=== PATIENT | male | born 1965 | race Caucasian/White ===

== ENCOUNTER 2016-06-30 15:10 | Emergency (ER) | payer MEDICARE, MEDICAID ==
[~2016-06-30] VITALS: Ht 175.3 cm; Wt 74.8 kg
[~2016-06-30 15:10] MED LIST: ALBU8.5H5 INH; ASPI325T4 PO; ATAZ300C PO; ATOR10TA PO; DOLU50TA PO; EMTR1TAB12 PO; FLUT1DIS INH; IBUP200T48 PO; RITO100C PO; TIOT18CA INH
[2016-06-30 15:23] VITALS: BP 160/91
[2016-06-30] MEDS ORDERED: HYDROcodone/APAP 5/325 TABLET ONE (15:48)
[2016-06-30] MEDS ORDERED: HYDROcodone/APAP 5/325 TABLET PO ONE (16:00)
== END 2016-06-30 16:38 | disposition home or self-care (01) ==
LOC: ED 16:35
DX: M79.672 Pain in left foot (principal); M85.80 Other specified disorders of bone density and structure, unspecified site; J44.9 Chronic obstructive pulmonary disease, unspecified; Z87.891 Personal history of nicotine dependence
CPT/HCPCS: 99284

== ENCOUNTER 2016-08-11 14:53 | Emergency (ER) | payer MEDICARE, MEDICAID ==
[~2016-08-11] VITALS: Ht 170.2 cm; Wt 83.6 kg
[2016-08-11] MEDS ORDERED: MORPHINE SULFATE 4 MG/ML, 1ML ONE ×2 (16:19→17:48)
[2016-08-11] MEDS ORDERED: ONDANSETRON 2MG/ML, 2ML ONE (16:19)
[2016-08-11] MEDS ORDERED: SODIUM CHLORIDE 0.9% 1,000ML IVBOLUS ONE (16:30)
[2016-08-11] MEDS ORDERED: ONDANSETRON 2MG/ML, 2ML IVPush ONE (16:30)
[2016-08-11] MEDS: MORPHINE SULFATE 4 MG/ML, 1ML IVPush PRN ×2 (16:31→17:51)
[2016-08-11 16:45] LABS: ASPARTATE AMINO TRANSFERASE 48 U/L (15-37); BLOOD UREA NITROGEN 7 mg/dL (7-18)
[2016-08-11 18:43] VITALS: BP 155/88
== END 2016-08-11 18:46 | disposition home or self-care (01) ==
LOC: ED 18:40
DX: M48.56XA Collapsed vertebra, not elsewhere classified, lumbar region, initial encounter for fracture (principal); J44.9 Chronic obstructive pulmonary disease, unspecified
CPT/HCPCS: 36415; 71010; 72131; 74176; 80053; 81003; 85025; 96361; 96374; 96375; 96376; 99285; J2405; J7030

== ENCOUNTER 2016-08-13 08:28 | Emergency (ER) | payer MEDICARE, MEDICAID ==
[~2016-08-13] VITALS: Ht 175.3 cm; Wt 80.0 kg
[2016-08-13] MEDS ORDERED: HYDROmorphone 1 MG/ML, 1ML ONE ×4 (08:44→14:51)
[2016-08-13] MEDS ORDERED: ONDANSETRON 2MG/ML, 2ML ONE ×2 (08:44→13:40)
[2016-08-13] MEDS: HYDROmorphone 1 MG/ML, 1ML IVPush PRN ×2 (08:56→10:43)
[2016-08-13] MEDS ORDERED: SODIUM CHLORIDE FLUSH 10ML SYR IVF ONE (09:00)
[2016-08-13] MEDS ORDERED: DIAZEPAM 5 MG/ML, 2ML IVPush ONE (09:00)
[2016-08-13] MEDS ORDERED: ONDANSETRON 2MG/ML, 2ML IVPush ONE ×2 (09:00→14:00)
[2016-08-13 11:11] LABS: BLOOD UREA NITROGEN 6 mg/dL (7-18)
[2016-08-13] MEDS ORDERED: SODIUM CHLORIDE 0.9% 1,000ML IVBOLUS ONE (11:30)
[2016-08-13 11:42] LABS: DIFF TOTAL CELLS COUNTED 100 CELL DIFF
[2016-08-13 11:43] LABS: VERIFY COUNTS? YES
[2016-08-13] MEDS ORDERED: GADOBUTROL 10 MMOL/10 ML PFS ONE (13:08)
[2016-08-13] MEDS ORDERED: HYDROmorphone 1 MG/ML, 1ML IVPush PRN (14:00)
[2016-08-13 14:30] VITALS: BP 158/89
== END 2016-08-13 15:06 | disposition home or self-care (01) ==
LOC: ED 08:57 → UNDOADMIN 11:36 → EDIP 11:36 → ED 15:06
DX: M48.56XA Collapsed vertebra, not elsewhere classified, lumbar region, initial encounter for fracture (principal); M51.26 Other intervertebral disc displacement, lumbar region; M85.80 Other specified disorders of bone density and structure, unspecified site; J44.9 Chronic obstructive pulmonary disease, unspecified
CPT/HCPCS: 36415; 72158; 80048; 82040; 85025; 85651; 86140; 96361; 96374; 96375; 96376; 99285; A9585; J1170; J2405; J3360; J7030

== ENCOUNTER 2016-08-19 06:11 | Inpatient (IN) | payer MEDICARE, MEDICAID ==
[~2016-08-19] VITALS: Ht 177.8 cm; Wt 85.3 kg
[2016-08-19] MEDS ORDERED: DIAZEPAM 5 MG/ML, 2ML IVPush ONE (06:30)
[2016-08-19] MEDS ORDERED: ONDANSETRON 2MG/ML, 2ML IVPush ONE (06:30)
[2016-08-19] MEDS ORDERED: KETOROLAC 30 MG/1 ML IVPush ONE (06:30)
[2016-08-19] MEDS ORDERED: SODIUM CHLORIDE FLUSH 10ML SYR IVF ONE (06:30)
[2016-08-19] MEDS ORDERED: KETOROLAC 30 MG/1 ML ONE (06:35)
[2016-08-19] MEDS ORDERED: ONDANSETRON 2MG/ML, 2ML ONE (06:36)
[2016-08-19 07:01] LABS: BLOOD UREA NITROGEN 8 mg/dL (7-18)
[2016-08-19 07:04] LABS: ASPARTATE AMINO TRANSFERASE 71 U/L (15-37)
[2016-08-19] MEDS ORDERED: SODIUM CHLORIDE FLUSH 10ML SYR IVF PRN (07:30)
[2016-08-19] MEDS ORDERED: DOCUSATE 100 MG CAPSULE PO PRN (08:30)
[2016-08-19] MEDS ORDERED: GUAIFENESIN/DM 200-20MG, 10ML UDC PO PRN (08:30)
[2016-08-19] MEDS ORDERED: BISACODYL 10 MG SUPP PR PRN (08:30)
[2016-08-19] MEDS ORDERED: ONDANSETRON 2MG/ML, 2ML IVPush PRN (08:30)
[2016-08-19] MEDS ORDERED: morphine SULFATE 10 MG/ML, 1ML IVPush PRN (08:30)
[2016-08-19] MEDS ORDERED: ACETAMINOPHEN 325 MG TABLET PO PRN (08:30)
[2016-08-19] MEDS ORDERED: POLYETHYLENE GLYCOL 17 GM PACKET PO PRN (08:30)
[2016-08-19] MEDS ORDERED: ONDANSETRON ODT 4 MG PO PRN (08:30)
[2016-08-19] MEDS: (Tiotropium Bromide** (Spiriva**) 18 MCG) INH SCH (09:00)
[2016-08-19] MEDS ORDERED: TRAZ100T15 PO (10:44)
[2016-08-19] MEDS ORDERED: GABA-826 PO (10:44)
[2016-08-19] MEDS ORDERED: EMTR1TAB14 PO (10:47)
[2016-08-19] MEDS ORDERED: ALBUTEROL/IPRATROPIUM 2.5MG/0.5MG, 3 ML ONE (11:28)
[2016-08-19] MEDS ORDERED: POTASSIUM CHLORIDE 20 MEQ TAB.ER.PRT PO ONE (11:30)
[2016-08-19] MEDS ORDERED: EMTRICITABINE/TENOFOVIR 200 MG/300 MG TABLET PO SCH (11:30)
[2016-08-19] MEDS: ALBUTEROL/IPRATROPIUM 2.5MG/0.5MG, 3 ML NPPB SCH ×3 (11:38→20:00)
[2016-08-19 11:50] VITALS: BP 107/70
[2016-08-19] MEDS: ASPIRIN 325 MG TABLET PO SCH (11:53)
[2016-08-19] MEDS: OXYcodone IR 5MG TABLET PO PRN ×3 (11:53→19:55)
[2016-08-19] MEDS: CYCLOBENZAPRINE 10 MG TABLET PO PRN ×2 (11:53→20:57)
[2016-08-19] MEDS: NICOTINE 7 MG/24 HR PATCH.TD24 TD SCH (11:53)
[2016-08-19] MEDS: RITONAVIR 100 MG TABLET PO SCH (11:54)
[2016-08-19 12:47] VITALS: BP 107/69
[2016-08-19] MEDS: GABAPENTIN 100 MG CAPSULE PO SCH ×2 (15:10→20:57)
[2016-08-19] MEDS ORDERED: GADOBUTROL 7.5 MMOL/7.5 ML PFS ONE (16:59)
[2016-08-19] MEDS: HEPARIN 5,000 UNITS/ML, 1ML SQ SCH (17:10)
[2016-08-19 19:35] VITALS: BP 117/69
[2016-08-19] MEDS: ATORVASTATIN 10 MG TABLET PO SCH (20:57)
[2016-08-20] MEDS: OXYcodone IR 5MG TABLET PO PRN ×5 (00:33→22:21)
[2016-08-20] MEDS: HEPARIN 5,000 UNITS/ML, 1ML SQ SCH ×3 (00:34→16:55)
[2016-08-20 01:10] VITALS: BP 126/70
[2016-08-20 05:28] LABS: ASPARTATE AMINO TRANSFERASE 53 U/L (15-37); BLOOD UREA NITROGEN 11 mg/dL (7-18)
[2016-08-20] MEDS: ALBUTEROL/IPRATROPIUM 2.5MG/0.5MG, 3 ML NPPB SCH (06:32)
[2016-08-20 07:11] VITALS: BP 122/75
[2016-08-20] MEDS: (Tiotropium Bromide** (Spiriva**) 18 MCG) INH SCH (07:57)
[2016-08-20] MEDS: NICOTINE 7 MG/24 HR PATCH.TD24 TD SCH (07:57)
[2016-08-20] MEDS: ASPIRIN 325 MG TABLET PO SCH (08:00)
[2016-08-20] MEDS: GABAPENTIN 100 MG CAPSULE PO SCH ×3 (08:00→20:30)
[2016-08-20] MEDS: RITONAVIR 100 MG TABLET PO SCH (09:46)
[2016-08-20] MEDS: CYCLOBENZAPRINE 10 MG TABLET PO PRN ×2 (09:46→20:30)
[2016-08-20] MEDS: EMTRICITABINE/TENOFOVIR 200 MG/300 MG TABLET PO SCH (11:00)
[2016-08-20] MEDS ORDERED: HEPARIN 5,000 UNITS/ML, 1ML SQ SCH (11:30)
[2016-08-20 13:18] VITALS: BP 126/86
[2016-08-20] MEDS: TAMSULOSIN 0.4 MG CAP.ER.24H PO SCH (13:22)
[2016-08-20 19:54] VITALS: BP 134/75
[2016-08-20] MEDS: ATORVASTATIN 10 MG TABLET PO SCH (20:30)
[2016-08-20] MEDS ORDERED: ALBUTEROL/IPRATROPIUM 2.5MG/0.5MG, 3 ML NPPB SCH (21:00)
[2016-08-20] MEDS ORDERED: ALBUTEROL/IPRATROPIUM 2.5MG/0.5MG, 3 ML NPPB PRN (22:30)
[2016-08-21] MEDS: HEPARIN 5,000 UNITS/ML, 1ML SQ SCH ×3 (00:50→16:41)
[2016-08-21 02:02] VITALS: BP 137/82
[2016-08-21] MEDS: OXYcodone IR 5MG TABLET PO PRN ×5 (02:37→20:55)
[2016-08-21 06:45] VITALS: BP 120/75
[2016-08-21] MEDS: (Tiotropium Bromide** (Spiriva**) 18 MCG) INH SCH (08:41)
[2016-08-21] MEDS: NICOTINE 7 MG/24 HR PATCH.TD24 TD SCH (08:44)
[2016-08-21] MEDS: EMTRICITABINE/TENOFOVIR 200 MG/300 MG TABLET PO SCH (08:45)
[2016-08-21] MEDS: ASPIRIN 325 MG TABLET PO SCH (08:45)
[2016-08-21] MEDS: GABAPENTIN 100 MG CAPSULE PO SCH ×3 (08:45→20:55)
[2016-08-21] MEDS: RITONAVIR 100 MG TABLET PO SCH (08:45)
[2016-08-21] MEDS: TAMSULOSIN 0.4 MG CAP.ER.24H PO SCH (08:45)
[2016-08-21] MEDS ORDERED: EMTRICITABINE/TENOFOVIR 200 MG/300 MG TABLET PO SCH (09:00)
[2016-08-21] MEDS: SODIUM CHLORIDE 0.9% 1,000 ML IV SCH (13:02)
[2016-08-21 14:00] VITALS: BP 128/78
[2016-08-21 18:55] VITALS: BP 137/76
[2016-08-21] MEDS ORDERED: NICOTINE 7 MG/24 HR PATCH.TD24 TD SCH (19:30)
[2016-08-21] MEDS: ATORVASTATIN 10 MG TABLET PO SCH (20:55)
[2016-08-22 00:42] VITALS: BP 106/63
[2016-08-22] MEDS: OXYcodone IR 5MG TABLET PO PRN ×5 (01:29→18:34)
[2016-08-22] MEDS: SODIUM CHLORIDE 0.9% 1,000 ML IV SCH ×2 (01:52→13:35)
[2016-08-22 08:50] VITALS: BP 133/76
[2016-08-22] MEDS: (Tiotropium Bromide** (Spiriva**) 18 MCG) INH SCH (09:00)
[2016-08-22] MEDS: TAMSULOSIN 0.4 MG CAP.ER.24H PO SCH (09:34)
[2016-08-22] MEDS: RITONAVIR 100 MG TABLET PO SCH (09:35)
[2016-08-22] MEDS: GABAPENTIN 100 MG CAPSULE PO SCH ×2 (09:35→16:09)
[2016-08-22] MEDS: ASPIRIN 325 MG TABLET PO SCH (09:35)
[2016-08-22] MEDS: EMTRICITABINE/TENOFOVIR 200 MG/300 MG TABLET PO SCH (09:36)
[2016-08-22] MEDS: HEPARIN 5,000 UNITS/ML, 1ML SQ SCH ×3 (09:36→16:10)
[2016-08-22 16:19] VITALS: BP 144/74
[2016-08-22] MEDS ORDERED: [UNRECOGNIZED DRUG - CODE] SQ (18:02)
[2016-08-22] MEDS ORDERED: NICO1PAT10 TD (18:03)
[2016-08-22] MEDS ORDERED: TAMS0.4C2 PO (18:06)
[2016-08-22] MEDS ORDERED: ACET325T14 PO (18:07)
[2016-08-22] MEDS ORDERED: ALBU1.25 NEB (18:09)
[2016-08-22] MEDS ORDERED: BISA10SU2 PR (18:09)
[2016-08-22] MEDS ORDERED: CYCL5TAB PO (18:10)
[2016-08-22] MEDS ORDERED: DOCU-30 PO (18:11)
[2016-08-22] MEDS ORDERED: ONDA4TAB13 SL (18:12)
[2016-08-22] MEDS ORDERED: GUAI5SYR PO (18:12)
[2016-08-22] MEDS ORDERED: ONDA4DIS IV (18:13)
[2016-08-22] MEDS ORDERED: OXYC5TAB3 PO (18:14)
[2016-08-22] MEDS ORDERED: POLY17PO5 PO (18:15)
== END 2016-08-22 18:46 | disposition short-term general hospital (02) | DRG 551 ==
LOC: ED 06:32 → EDIP 07:08 → 3NE 10:42
PROVIDERS: ADMIT Hospitalist; ATTEND Hospitalist
DX: S32.010A Wedge compression fracture of first lumbar vertebra, initial encounter for closed fracture (principal); B20 Human immunodeficiency virus [HIV] disease; J96.11 Chronic respiratory failure with hypoxia; D69.3 Immune thrombocytopenic purpura; J98.11 Atelectasis; J44.9 Chronic obstructive pulmonary disease, unspecified; G89.29 Other chronic pain; M85.80 Other specified disorders of bone density and structure, unspecified site; R33.9 Retention of urine, unspecified; G62.9 Polyneuropathy, unspecified; D69.6 Thrombocytopenia, unspecified; Z88.2 Allergy status to sulfonamides
CPT/HCPCS: 36415; 71010; 72131; 72158; 80053; 83735; 85025; 94640; 96374; 96375; A9585; J1644; J1885; J2405; J3360; J7620; J7030